=== PATIENT | male | born 1965 | race African-American/Black ===

== ENCOUNTER 2022-12-31 19:39 | Emergency (ER) | payer OTHER ==
[~2022-12-31] VITALS: Ht 182.9 cm; Wt 77.0 kg
[2022-12-31 20:11] VITALS: BP 112/71
[2022-12-31] MEDS ORDERED: IBUPROFEN 400MG TABLET PO ONE (22:15)
[2022-12-31] MEDS ORDERED: ACETAMINOPHEN 325MG TABLET PO ONE (22:15)
[2022-12-31] MEDS ORDERED: IBUP-2028 MT (22:42)
== END 2022-12-31 23:03 | disposition home or self-care (01) ==
LOC: ER 19:39
DX: M25.562 Pain in left knee (principal)
CPT/HCPCS: 99283